=== PATIENT | male | born 1935 | race Caucasian/White ===

== ENCOUNTER 2019-04-29 21:24 | Observation (INO) | payer MEDICARE, OTHER ==
[~2019-04-29] VITALS: Ht 177.8 cm; Wt 94.0 kg
[~2019-04-29 21:24] MED LIST: ASPIRIN EC81 MG PO; ATENOLOL50 MG PO; AZITHROMYCIN250 MG PO; CALCIUM + D600 MG PO; ENALAPRIL10 MG PO; ENALAPRIL20 MG PO; FISH OIL1000 MG PO; MEVACOR10 MG PO; MEVACOR20 MG PO; MINOCYCLINE50 MG PO; MULTI FOR HIM PO; MYRAC50 MG PO; OMEGA 31200 MG PO; OXYCOD/APAP1 TA4 PO; TENORMIN100 MG PO
[2019-04-29 21:49] LABS: HEMOGLOBIN 12.4 g/dl (14.0-18.0); IMMATURE GRANULOCYTES 0.8 % (0.0-5.0); MEAN CELL VOLUME 91.1 fL CALC (80.0-100.0); MEAN CORPUSCULAR HGB 29.7 pG CALC (26.0-32.0); MEAN CORPUSCULAR HGB CONC 32.6 g/L CALC (32.0-36.0); NEUT# 4.86 thou/uL (1.82-7.42); RED BLOOD COUNT 4.17 mill/uL (4.70-6.10)
[2019-04-29 22:34] LABS: ALBUMIN 4.1 g/dL (3.2-5.0); ANION GAP 14 (6-22 (CALC)); BILIRUBIN, TOTAL 0.7 mg/dL (0.0-1.4); BUN 18 mg/dL (8-23); BUN/CREATININE RATIO 21 (12-20 (CALC)); CARBON DIOXIDE 24 mmol/l (22-30); CHLORIDE 105 mmol/l (95-108); CREATININE 0.9 mg/dL (0.7-1.3); GFR > 60 ML/MIN (>=60 (CALC)); GFR FOR AFR.AMER. > 60 ML/MIN (>=60 (CALC)); POTASSIUM 3.8 mmol/l (3.5-5.1); SGOT/AST 58 u/l (19-48); SODIUM 139 mmol/l (137-146); TOTAL PROTEIN 8.4 g/dL (6.3-8.2)
[2019-04-29 22:35] LABS: ALKALINE PHOSPHATASE 125 u/l (38-126)
[2019-04-29] MEDS ORDERED: TENORMIN PO (22:37)
[2019-04-29 22:51] LABS: URINE BILIRUBIN - DIPSTICK NEGATIVE (NEGATIVE); URINE BLOOD DIPSTICK MODERATE (NEGATIVE); URINE COLOR YELLOW; URINE GLUCOSE - DIPSTICK NEGATIVE (NEGATIVE); URINE KETONE TRACE mg/dL (NEGATIVE); URINE PH 5.5 (4.5-8.0); URINE PROTEIN - DIPSTICK 100 mg/dL (NEG-TRACE); URINE SPECIFIC GRAVITY >=1.030; URINE UROBILINOGEN - DIPSTICK 0.2 E.U./dL (0.2)
[2019-04-29 23:18] LABS: URINE LEUK ESTERASE MODERATE (NEGATIVE); URINE NITRITE - DIPSTICK POSITIVE (Negative)
[2019-04-29 23:27] LABS: URINE RBC >100 RBC/hpf (0-5); URINE WBC >100 WBC/hpf (0-5)
[2019-04-29 23:28] LABS: URINE BACTERIA MANY hpf; URINE EPITHELIAL CELLS FEW EPI/hpf (0-FEW)
[2019-04-30 00:52] VITALS: BP 127/71
[2019-04-30 04:33] VITALS: BP 114/66
[2019-04-30 04:56] LABS: HEMATOCRIT 35.5 % (39.0-50.0); HEMOGLOBIN 11.4 g/dl (14.0-18.0); IMMATURE GRANULOCYTES 0.4 % (0.0-5.0); MEAN CELL VOLUME 92.4 fL CALC (80.0-100.0); MEAN CORPUSCULAR HGB 29.7 pG CALC (26.0-32.0); MEAN CORPUSCULAR HGB CONC 32.1 g/L CALC (32.0-36.0); NEUT# 6.49 thou/uL (1.82-7.42); RED BLOOD COUNT 3.84 mill/uL (4.70-6.10); RED CELL DISTRI WIDTH 14.1 % (11.5-15.5)
[2019-04-30 05:10] LABS: ALBUMIN 3.3 g/dL (3.2-5.0); ALKALINE PHOSPHATASE 95 u/l (38-126); ANION GAP 11 (6-22 (CALC)); BILIRUBIN, TOTAL 0.7 mg/dL (0.0-1.4); BUN 15 mg/dL (8-23); BUN/CREATININE RATIO 19 (12-20 (CALC)); CARBON DIOXIDE 23 mmol/l (22-30); CHLORIDE 109 mmol/l (95-108); CREATININE 0.8 mg/dL (0.7-1.3); GFR > 60 ML/MIN (>=60 (CALC)); GFR FOR AFR.AMER. > 60 ML/MIN (>=60 (CALC)); POTASSIUM 4.1 mmol/l (3.5-5.1); SGOT/AST 49 u/l (19-48); SODIUM 139 mmol/l (137-146); TOTAL PROTEIN 6.9 g/dL (6.3-8.2)
[2019-04-30 08:41] VITALS: BP 118/69
[2019-04-30 10:40] VITALS: BP 96/54
[2019-04-30 14:40] VITALS: BP 121/60
[2019-04-30 19:15] VITALS: BP 143/71
[2019-05-01 00:19] VITALS: BP 123/69
[2019-05-01 03:40] VITALS: BP 119/60
[2019-05-01 05:20] LABS: HEMATOCRIT 32.6 % (39.0-50.0); HEMOGLOBIN 10.4 g/dl (14.0-18.0); MEAN CELL VOLUME 93.1 fL CALC (80.0-100.0); MEAN CORPUSCULAR HGB 29.7 pG CALC (26.0-32.0); MEAN CORPUSCULAR HGB CONC 31.9 g/L CALC (32.0-36.0); RED BLOOD COUNT 3.5 mill/uL (4.70-6.10); RED CELL DISTRI WIDTH 14.4 % (11.5-15.5)
[2019-05-01 05:42] LABS: ANION GAP 12 (6-22 (CALC)); BUN 14 mg/dL (8-23); BUN/CREATININE RATIO 18 (12-20 (CALC)); CARBON DIOXIDE 21 mmol/l (22-30); CHLORIDE 111 mmol/l (95-108); CREATININE 0.8 mg/dL (0.7-1.3); GFR > 60 ML/MIN (>=60 (CALC)); GFR FOR AFR.AMER. > 60 ML/MIN (>=60 (CALC)); MAGNESIUM 1.6 mg/dL (1.6-2.3); SODIUM 140 mmol/l (137-146)
[2019-05-01 07:42] VITALS: BP 126/65
[2019-05-01 10:25] VITALS: BP 119/57
[2019-05-01] MEDS ORDERED: KEFLEX500 M1 PO (12:11)
== END 2019-05-01 13:32 | disposition home or self-care (01) ==
LOC: ED 21:24 → ED-I 23:17 → ED 23:46 → MS2 23:47
PROVIDERS: Emergency Medicine; Nurse Practitioner Family; ADMIT Internal Medicine; ATTEND Internal Medicine
DX: N39.0 Urinary tract infection, site not specified (principal); I10 Essential (primary) hypertension; E87.2 Acidosis; E78.5 Hyperlipidemia, unspecified; I25.2 Old myocardial infarction; B96.20 Unspecified Escherichia coli [E. coli] as the cause of diseases classified elsewhere; Z87.891 Personal history of nicotine dependence; Z72.89 Other problems related to lifestyle; Z85.46 Personal history of malignant neoplasm of prostate
CPT/HCPCS: G0378

== ENCOUNTER 2020-03-31 16:15 | Inpatient (IN) | payer MEDICARE, OTHER ==
[~2020-03-31] VITALS: Ht 177.8 cm; Wt 89.8 kg
[~2020-03-31 16:15] MED LIST changes: +KEFLEX500 M1 PO; +TENORMIN PO
--- NOTE | 2020-03-31 16:15 | NUR ---
PT AMBULATED TO ROOM 12 WITH STEADY GIAT
--- NOTE | 2020-03-31 16:20 | NUR ---
LKW 1330 PATIENT SEEN WITH SUDDEN ONSET ASPASIA, INABILITY TO FOLLOW COMMANDS AND WEAKNESS MOSTLY ON THE RIGHT. PATIENT ASPHASIA WITH THE WORDS MAMA AND FIFTY. PATIENT UNABLE TO IDENTIFY A RING OR A PEN. PATIENT POOR HISTORIAN AND FAMILY PROVIDING MOST INFORMATION. PATIENT MOVING WITH SLOW SHUFFLING GAIT WEAKER ON THE LEFT TO ROOM. PATIENT STATES BLURRED VISION STARTING AT SAME TIME LKW. STROKE ALERT CALL AND MD AT BEDSIDE FOR EVAL
[2020-03-31 17:09] LABS: IMMATURE GRANULOCYTES 0.7 % (0.0-5.0); MEAN CELL VOLUME 91.8 fL CALC (80.0-100.0); MEAN CORPUSCULAR HGB CONC 31.6 g/dL CAL (32.0-36.0); NEUT# 2.11 thou/uL (1.82-7.42); RED BLOOD COUNT 4.14 mill/uL (4.70-6.10); RED CELL DISTRI WIDTH 14.4 % (11.5-15.5)
[2020-03-31 17:25] LABS: ALKALINE PHOSPHATASE 89 u/l (38-126); ANION GAP 12 (6-22 (CALC)); BUN 15 mg/dL (8-23); BUN/CREATININE RATIO 17 (12-20 (CALC)); CARBON DIOXIDE 23 mmol/l (22-30); CHLORIDE 107 mmol/l (95-108); CREATININE 0.9 mg/dL (0.7-1.3); GFR > 60 ML/MIN (>=60 (CALC)); GFR FOR AFR.AMER. > 60 ML/MIN (>=60 (CALC)); POTASSIUM 4.1 mmol/l (3.5-5.1); SGOT/AST 48 u/l (19-48); SODIUM 138 mmol/l (137-146)
[2020-03-31 17:30] LABS: ALBUMIN 4.1 g/dL (3.2-5.0); BILIRUBIN, TOTAL 0.4 mg/dL (0.0-1.4); TOTAL PROTEIN 8.4 g/dL (6.3-8.2)
--- NOTE | 2020-03-31 17:30 | NUR ---
TREATMENTS BEING COMPLETED. PTS CONDITION UNCHANGED. DENIES ANY NEEDS AT THIS TIME
[2020-03-31 17:31] LABS: ACT PARTIAL THROMBO TIME 28.2 SECONDS (20.0-32.5); INTERNATIONAL NORMALIZED RATIO 1.1 RATIO (0.7-1.3); PROTHROMBIN TIME 10.7 SECONDS (9.0-12.5)
--- NOTE | 2020-03-31 18:30 | NUR ---
PT NOTIFIED OF PENDING ADMISSION. ANTIBIOTICS INFUSING INTO PATENT IV
[2020-03-31 18:41] LABS: URINE BILIRUBIN - DIPSTICK NEGATIVE (NEGATIVE); URINE BLOOD DIPSTICK NEGATIVE (NEGATIVE); URINE COLOR YELLOW; URINE GLUCOSE - DIPSTICK NEGATIVE (NEGATIVE); URINE KETONE NEGATIVE (NEGATIVE); URINE LEUK ESTERASE NEGATIVE (NEGATIVE); URINE NITRITE - DIPSTICK NEGATIVE (Negative); URINE PH 5.5 (4.5-8.0); URINE PROTEIN - DIPSTICK NEGATIVE (NEG-TRACE)
--- NOTE | 2020-03-31 19:00 | NUR ---
GAVE REPORT TO FRANCA
[2020-03-31 20:00] VITALS: BP 160/79
--- NOTE | 2020-03-31 20:00 | NUR ---
RESTING QUIETLY. AWAITING AVAILABLE BED.
[2020-04-01] VITALS (7 sets, daily range): BP systolic 142–171; BP diastolic 63–79
--- NOTE | 2020-04-01 | NUR ---
SLEEPING. NO APPARENT DISTRESS.
--- NOTE | 2020-04-01 03:58 | NUR ---
SLEEPING. APPEARS COMFORTABLE. NO APPARENT DISTRESS.
--- NOTE | 2020-04-01 03:59 | NUR ---
SLEEPING NO APPARENT DISTRESS. APPEARS COMFORTABLE.
--- NOTE | 2020-04-01 06:00 | NUR ---
SLEEPING. NO APPARENT DISTRESS. NO CHANGES NOTED
--- NOTE | 2020-04-01 06:58 | NUR ---
REPORT FROM NIGHTSHIFT TAKEN
--- NOTE | 2020-04-01 07:43 | NUR ---
RESTING NO CHANGE
--- NOTE | 2020-04-01 17:46 | NUR ---
PATIENT HAD STAT CONSULT WITH DR ADAMS WITH [facility]. PATIENT GREATLY INPROVED FROM YESTERDAY. PATIENT STILL MILDLY ASPHASIC. ALL OTHER NIHSS EXAMS ARE NEGATIVE AT THIS TIME. PATIENT ABULATING AROUND ROOM WITHOUT DIFFICULTY. PATIENT HAVING TROUBLE WITH FIFTY FIFTY, HUCKLEBERRY AND PIPE BUFFER.
--- NOTE | 2020-04-01 18:12 | NUR ---
REPORT CALLED TO MELO IN [facility] REPORT GIVEN
--- NOTE | 2020-04-01 18:21 | NUR ---
RECEIVED REPORT FROM MARY MCCULLOUGH AT THIS TIME PATIENT ARRIVED TO UNIT VIA WHEELCHAIR ACCOMPANIED BY MARY COOLEY, PATIENT IS ALERT AND ORIENTED X 3 PATIENT DOES EXHIBIT DELAY IN ANSWERING QUESTIONS BUT ANSWERS CORRECTLY. PATIENT STATES HE HAS NO PAIN AT THIS TIME AND STATED "I AM PLANNING TO GO HOME TOMORROW. PATIENT IS ON RA AT THIS TIME. PATIENT WAS ORIENTED TO ROOM AND SURROUNDING AT THIS TIME. PATIENT VERBALIZES UNDERSTANDING OF ROOM ORIENTATION AND CALL LIGHT USE. PATIENT HAS A # 20 IV IN LAC AND IS SALINE LOCKED AT THIS TIME PATIENT IS TELE MONITORED AND IS MONIORED BY ED.
--- NOTE | 2020-04-01 18:37 | NUR ---
TRANSPORTED TO ROOM VIA WHEELCHAIR
--- NOTE | 2020-04-01 21:04 | NUR ---
PT MEDICATED AT THIS TIME WITH ANTIBIOTIC THERAPY BROUGHT FROM ED UNIT FOR EARLIER SHEDULED ANTIBIOTIC THERAPY. PT ALSO MEDICATED WITH ASP,LOVONOX AND ATORVASTATIN AT THIS TIME. NEURO EXAM PERFORMED, NO OBSERVED DEFICITS. POSSIBLE VERY MILD DROOP TO LEFT SIDE OF MOUTH THOUGHT TO BE OBSERVED WITH VERY MILD SPEECH IMPEDE/UNCERTAIN OF BASELINE SPEECH. PT LOX X6, POC DISCUSSED. PT DID SEEM UNAWARE OF DX AND MRI OUTCOME AT THIS TIME. I AM UNCERTAIN IF THIS WAS NOT DISCUSSED AND EXPLAINED TO HIM OR IF HE FORGOT THE INFORMATION. NO S/O DISTRESS. PT DENIED SOB,COUGH,N/V/D. REPORTS PRIOR CONFUSION ON READING THE PAPER, BUT STATES THAT HAS RESOLVED.
--- NOTE | 2020-04-01 23:30 | NUR ---
IV ANTIBIOTIC COMPLETED AT THIS TIME. IV FLUSHED, SITE APPEARS HEALTHY. POC DISCUSSED WITH PT. HE IS ASKING ABOUT HIS MEDICATIONS AND WHY HE DID NOT GET ABX IN EARLIER TODAY, I EXPLAINED THAT THEY ARE 1X DAILY ANTIBIOTICS AND THAT HE DID RECEIVE ONE 3 HOURS LATE, BUT THAT HE DID NOT COMPLETELY MISS THE DAILY DOSE AND THAT HE WILL RECEIVE THEM BOTH AGAIN TOMORROW AT THE SCHEDULED TIME. VERBALIZED UNDERSTANDING. OFFERED COMFORT CARE AND ENCOURAGED HIM TO CALL NEEDS ARISE. CALL LIGHT W/IN REACH, PT VERBALIZED "GOOD NIGHT."
[2020-04-02 00:21] VITALS: BP 152/79
[2020-04-02 00:47] LABS: CHOLESTEROL HDL RATIO 4.9 (<4.4 (CALC))
[2020-04-02 04:00] VITALS: BP 156/85
--- NOTE | 2020-04-02 05:30 | NUR ---
PT SLEEPING, AWOKE TO MY ENTERING THE ROOM. CALL LIGHT WAS ON THE FLOOR. I WRAPPED IT TO BED SO HE COULD FIND IT, INFORMED HIM OF ITS LOCATION. DENIED ANY NEEDS FROM ME AT THIS TIME.
[2020-04-02 06:20] LABS: HEMATOCRIT 37.2 % (39.0-50.0); HEMOGLOBIN 11.7 g/dl (14.0-18.0); IMMATURE GRANULOCYTES 0.5 % (0.0-5.0); MEAN CELL VOLUME 92.3 fL CALC (80.0-100.0); MEAN CORPUSCULAR HGB CONC 31.5 g/dL CAL (32.0-36.0); NEUT# 2.08 thou/uL (1.82-7.42); RED BLOOD COUNT 4.03 mill/uL (4.70-6.10); RED CELL DISTRI WIDTH 14.3 % (11.5-15.5)
[2020-04-02 06:56] LABS: ALBUMIN 3.2 g/dL (3.2-5.0); ALKALINE PHOSPHATASE 73 u/l (38-126); ANION GAP 11 (6-22 (CALC)); BILIRUBIN, TOTAL 0.5 mg/dL (0.0-1.4); BUN 14 mg/dL (8-23); BUN/CREATININE RATIO 20 (12-20 (CALC)); CALCULATED LDLCHOLESTEROL 68 mg/dL (62-129 (CALC)); CARBON DIOXIDE 25 mmol/l (22-30); CHLORIDE 106 mmol/l (95-108); CHOLESTEROL HDL RATIO 5.3 (<4.4 (CALC)); CREATININE 0.7 mg/dL (0.7-1.3); GFR > 60 ML/MIN (>=60 (CALC)); GFR FOR AFR.AMER. > 60 ML/MIN (>=60 (CALC)); HDL CHOLESTEROL 21 mg/dL (>=40); POTASSIUM 3.9 mmol/l (3.5-5.1); SGOT/AST 58 u/l (19-48); SODIUM 138 mmol/l (137-146); TOTAL CHOLESTEROL 111 mg/dl (0-199); TOTAL PROTEIN 6.7 g/dL (6.3-8.2); TOTAL TRIGLYCERIDES 112 mg/dl (30-149); VLDL CHOLESTROL 22 mg/dl (0-38 (CALC))
[2020-04-02 08:00] VITALS: BP 156/79
[2020-04-02 10:40] VITALS: BP 134/75
--- NOTE | 2020-04-02 13:00 | NUR ---
PT SEEN AT REST IN THE BED, NO NEURAL CHANGES NOTED.
--- NOTE | 2020-04-02 13:46 | NUR ---
Pt seen for additional evalaution of cognitive linguistic function d/t impaired status from previous evlauation and reports from medical team. Pt was seated upright at 90 degrees upon entry of the GUT CLEANER seated at the edge of his bed. He was A&O x4. Carlos showed improved alertness from previous interactions. Carlos completed a pt interview appropriately. He presented with minimal to no impairment for spoken language comprehension using 2-step directions, conversational tasks, object identification, and yes/no questions however he has a barrier of impaired hearing and requires multiple repetitions. Carlos's expressive language was characterized by WFL repetition tasks of single words, phrases and 8-10 word sentences. He showed no impairments for word fluency, automatic speech tasks, and conversational speech. He required semantic cueing for 1 confrontational naming task out of 17 trials. He completed a spoken and written picture description task using primarily phrase and sentence level speech. The pt was reading his newspaper prior to the evaluation and he showed WFL ability to write single words and presented sentences. Carlos also presented with improved working memory this date as he repeated 8-10 word sentences correctly and was successful recalling 4 words presented using delayed recall. Simple executive functioning tasks were presented, however higher level cognition was not assessed such as pill management, functional house tasks, or financial services consultant. GUT CLEANER recommends home health services to further assess cognition for ADLs and household tasks.
--- NOTE | 2020-04-02 14:39 | NUR ---
PT SEEN AWAKE, ALERT, ORIENTED X 3. LUNGS CLEAR, RA. NO NEURAL DEFICITS NOTED.
[2020-04-02 15:35] VITALS: BP 142/71
--- NOTE | 2020-04-02 16:38 | NUR ---
PT CHECKED ON OCCASIONALLY, DOES NOT MIND BEING ALONE AT THE END OF HALLWAY. NO CHANGES, NO DEFICITS.
[2020-04-02 19:45] VITALS: BP 139/79
--- NOTE | 2020-04-02 23:49 | NUR ---
PT REMAINS ON CONTACT AND [place] PRECAUTIONS, PT IS POSITIVE FOR COVID. PT IS VERY INDEPENDENT AND DENIES ANY COVID SYMPTOMS. ABT CONTINUES, NO S/S OF COMPLICATIONS NOTED RELATED TO ABT. BREATHING EVEN AND UNLABORED, LUNGS CTA. NO WOUNDS NOTED. IV REMAINS TO LAC, FLUSHES EASILY. WILL MONITOR.
[2020-04-03 04:20] VITALS: BP 148/87
[2020-04-03 07:59] VITALS: BP 167/85
--- NOTE | 2020-04-03 09:00 | NUR ---
PT IS AWAKE, ALERT, ORIENTED X 3. LUNGS WITH SLIGHT CRACKLES IN BASES, RA. PT AMBULATORY IN ROOM, NO DEFICITS NOTED. PT SEEN BY DR NAJERA THIS AM, ANTICIPATE DISCHARGE HOME.
[2020-04-03] MEDS ORDERED: AMLODIPINE BESYL5 MG PO (10:15)
[2020-04-03] MEDS ORDERED: ATORVASTATIN CA40 MG PO (10:15)
[2020-04-03] MEDS ORDERED: TENORMIN PO (10:15)
[2020-04-03] MEDS ORDERED: ZITHROMAX500 MG PO (10:15)
[2020-04-03 10:59] VITALS: BP 142/73
--- NOTE | 2020-04-03 11:36 | NUR ---
PT HAS BEEN DISCHARGED TO HOME. PT VERBALIZED UNDERSTANDING OF DC INSTRUCTIONS, TAKEN BY WHEELCHAIR TO VEHICLE BY VOLUNTEER. PT LEAVES [facility] IN STABLE CONDITION, NO EVIDENCE OF CVA.
== END 2020-04-03 11:35 | disposition home or self-care (01) | DRG 64 ==
LOC: ED 16:15 → ED-I 18:40 → ED 19:00 → ED-I 19:01 → MS2 04-01 16:58
PROVIDERS: Internal Medicine; Nurse Practitioner Family; Student in an Organized Health Care Education/Training Program; ADMIT Internal Medicine; ATTEND Internal Medicine
DX: I63.89 Other cerebral infarction (principal); U07.1 COVID-19; J12.82 Pneumonia due to coronavirus disease 2019; R47.01 Aphasia; R41.0 Disorientation, unspecified; G83.24 Monoplegia of upper limb affecting left nondominant side; R29.703 NIHSS score 3; I10 Essential (primary) hypertension; E78.5 Hyperlipidemia, unspecified; R00.1 Bradycardia, unspecified; I44.0 Atrioventricular block, first degree; R01.1 Cardiac murmur, unspecified; I35.0 Nonrheumatic aortic (valve) stenosis; I25.2 Old myocardial infarction; Z85.46 Personal history of malignant neoplasm of prostate; Z86.73 Personal history of transient ischemic attack (TIA), and cerebral infarction without residual deficits; Z87.891 Personal history of nicotine dependence
CPT/HCPCS: G0378; J1650; Q9967

== ENCOUNTER 2023-04-17 03:24 | Emergency (ER) | payer MEDICARE, OTHER ==
[~2023-04-17] VITALS: Ht 177.8 cm; Wt 74.0 kg
[~2023-04-17 03:24] MED LIST changes: +AMLODIPINE BESYL5 MG PO; +ATORVASTATIN CA40 MG PO; +ZITHROMAX500 MG PO
[2023-04-17 03:43] VITALS: BP 118/67
[2023-04-17 04:00] VITALS: BP 114/53
[2023-04-17] MEDS ORDERED: HYDROmorphone HCL 2 MG/TAB PO ONE (04:05)
[2023-04-17] MEDS ORDERED: MEGESTROL AC20 MG PO (04:06)
[2023-04-17 04:56] VITALS: BP 114/53
[2023-04-20] MEDS ORDERED: DICYCLOMINE HYD10 MG PO (16:47)
[2023-04-20] MEDS ORDERED: TRAMADOL HYDROC50 M1 PO (16:47)
== END 2023-04-17 05:03 | disposition home or self-care (01) ==
LOC: ED 03:24
DX: R16.0 Hepatomegaly, not elsewhere classified (principal); I10 Essential (primary) hypertension; E78.5 Hyperlipidemia, unspecified